=== PATIENT | female | born 1960 | race Caucasian/White ===

== ENCOUNTER → 2018-04-22 | Outpatient (CLI) | payer OTHER ==
[~2018-04-22] MED LIST: ALBU8.5H8 INH; CALC500T93 PO; CHOL2000 PO; CYCL-259 PO; IBUP-1223 PO; MONT10TA6 PO
== END | disposition home or self-care (01) ==
LOC: STAR 09:03
PROVIDERS: ATTEND Surgery
DX: Z02.9 Encounter for administrative examinations, unspecified (principal)